=== PATIENT | female | born 1990 | race Two or more races ===

== ENCOUNTER 2024-08-30 09:07 | Outpatient (RCR) | payer MEDICAID, SELFPAY | END 2024-09-13 23:59 | disposition home or self-care (01) | LOC: SCTC 09:07 | PROVIDERS: PCP Internal Medicine Pulmonary Disease; Referring Provider Nurse Practitioner Family; Visit Provider Nurse Practitioner Family | DX: D50.9 Iron deficiency anemia, unspecified (principal); E53.8 Deficiency of other specified B group vitamins; Z87.19 Personal history of other diseases of the digestive system; Z86.73 Personal history of transient ischemic attack (TIA), and cerebral infarction without residual deficits | CPT/HCPCS: 99212; G0463 ==

== ENCOUNTER 2024-09-24 14:17 | Outpatient (RCR) | payer MEDICAID, SELFPAY | END 2024-10-14 23:59 | disposition home or self-care (01) | LOC: SCTC 14:17 | PROVIDERS: PCP Internal Medicine Pulmonary Disease; Referring Provider Internal Medicine Pulmonary Disease; Visit Provider Nurse Practitioner Family | DX: D50.9 Iron deficiency anemia, unspecified (principal); E53.8 Deficiency of other specified B group vitamins; Z86.73 Personal history of transient ischemic attack (TIA), and cerebral infarction without residual deficits | CPT/HCPCS: 99212; G0463 ==

== ENCOUNTER 2024-12-11 11:00 | Outpatient (RCR) | payer MEDICAID, SELFPAY ==
--- NOTE | 2024-11-28 11:16 | PT.OIERPT ---
PT OP Initial Eval Patient Information Outpatient Physical Therapy Treatment Date: 11/28/24 Visit Reasons: low back pain Medical Diagnosis: M54.50 Treatment Dx #1: LBP Start of Care: 11/28/24 Date of Onset: August 02, 2024 Smoking Status Smoking Status: Never smoker Initial Assessment Subjective: Pt is 34 yr old female who reports LBP since epidural and of her baby in July. Pain shoots down from close to the epidural site. Increased pain with turning in bed, bending, lifting 10lb baby. PMH: C-sections x5, TIA 2022 Imaging: none Pt goal: to get rid of that pain, how to manage it. Objective: ? Trunk ArOM: ? B SB 50% of normal with LBP ? Extension: 20% with pain around L1-5 ? Flexion: 10 from floor with relief ? B rotation: 60% with pain ? TTP: moderate paraspinals L1-L5 paraspinals ? Neuro: B SLR: negative Assessment: Pt presents with myofascial tenderness of the lower thoracic and lumbar paraspinals after epidural which may be consistent with hypersensitive nerves in that area. Pt requires skilled therapy and has fair rehab potential to meet goals. 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 Ind with HEP ? 2. Improved turning in bed tolerance to painfree ? 3. Decreased lower paraspinal TTP from mod to min 4. Pt will lift her baby without back pain x3 Treatment Plan ?1. Manual therapy ? 2. Therex ? 3. Modalities as indicated, moist heat, ice, estim, mechanical traction Frequency and Duration: 1-2x a week for 12 sessions plus the evaluation Certification Dates: 11/28/24 to 02/26/25 Procedure Charges OP PT Eval Mod Complex 30 minutes: Yes
--- NOTE | 2024-12-04 11:44 | PT.ODAYNRPT ---
PT Outpatient Daily Note OP Daily Note Outpatient Physical Therapy Treatment Date: 12/04/24 Visit Reasons: low back pain Subjective: Pt c/o pain in mid back today, as per pt she has good and bad days. Objective: Please see flow sheet for ther ex list. Assessment: Interventions completed with minimal pain. Plan: Assess response to treatment. Length of Time (minutes) of Treatment: 30 Minutes Procedure Charges Therapeutic Exercise 30 minutes: Yes
--- NOTE | 2024-12-11 13:56 | PT.ODAYNRPT ---
PT Outpatient Daily Note OP Daily Note Outpatient Physical Therapy Treatment Date: 12/11/24 Visit Reasons: low back pain Subjective: Pt reports back and L hip are hurting today. Objective: Please see flow sheet for ther ex list. Assessment: Pt has poor activity tolerance due to pain response. Plan: Assess response to treatment. Length of Time (minutes) of Treatment: 30 Minutes Procedure Charges Therapeutic Exercise 30 minutes: Yes
== END 2024-12-14 23:59 | disposition home or self-care (01) ==
LOC: CPTX 11:00
PROVIDERS: PCP Internal Medicine Pulmonary Disease; Referring Provider Internal Medicine Pulmonary Disease; Visit Provider Internal Medicine Pulmonary Disease
DX: M54.50 Low back pain, unspecified (principal)
CPT/HCPCS: 97110; 97162

== ENCOUNTER 2024-12-12 13:52 | Outpatient (RCR) | payer MEDICAID, SELFPAY | END 2024-12-14 23:59 | disposition home or self-care (01) | LOC: SCTC 13:52 | PROVIDERS: PCP Internal Medicine Pulmonary Disease; Referring Provider Internal Medicine Pulmonary Disease; Visit Provider Internal Medicine Hematology & Oncology | DX: D50.9 Iron deficiency anemia, unspecified (principal); E53.8 Deficiency of other specified B group vitamins; Z86.73 Personal history of transient ischemic attack (TIA), and cerebral infarction without residual deficits | CPT/HCPCS: 96365; 96375; J2919; J3490; J7040; Q0138 ==

== ENCOUNTER 2025-01-08 11:00 | Outpatient (RCR) | payer MEDICAID, SELFPAY ==
--- NOTE | 2024-12-18 12:05 | PT.ODAYNRPT ---
PT Outpatient Daily Note OP Daily Note Outpatient Physical Therapy Treatment Date: 12/18/24 Visit Reasons: LOW BACK PAIN Subjective: Continued LBP, maybe a little less since starting therapy Objective: See F/S for therex MT: STM L/S with flexbar x7' Assessment: Moderate TTP of lumbar paraspinals with MT Plan: Continue per POC Length of Time (minutes) of Treatment: 30 Minutes Procedure Charges Therapeutic Exercise 30 minutes: Yes
--- NOTE | 2024-12-20 11:55 | PT.ODAYNRPT ---
PT Outpatient Daily Note OP Daily Note Outpatient Physical Therapy Treatment Date: 12/20/24 Visit Reasons: LOW BACK PAIN Subjective: Pt reports LBP still present, no changes at this time. Objective: Please see flow sheet for ther ex list. Assessment: Progressing core strengthening interventions, completed with good tolerance. Plan: Continue with pOC. Length of Time (minutes) of Treatment: 30 Minutes Procedure Charges Therapeutic Exercise 30 minutes: Yes
--- NOTE | 2024-12-27 14:26 | PT.ODAYNRPT ---
PT Outpatient Daily Note OP Daily Note Outpatient Physical Therapy Treatment Date: 12/27/24 Visit Reasons: LOW BACK PAIN Subjective: Continued LBP, maybe a little less since starting therapy Objective: See F/S for therex Assessment: Moderate TTP of lumbar paraspinals with MT. Pain into flexion and extension consistent with possible lumbar disc bulge. Plan: Continue per POC Length of Time (minutes) of Treatment: 30 Minutes Procedure Charges Therapeutic Exercise 30 minutes: Yes
--- NOTE | 2025-01-01 11:45 | PT.ODAYNRPT ---
PT Outpatient Daily Note OP Daily Note Outpatient Physical Therapy Treatment Date: 01/01/25 Visit Reasons: LOW BACK PAIN Subjective: No changes to report on LBp. pt mentioned on Tuesday when it was rainy pt slipped and fell outsied a store, feels like her knee gave out. pt mentioned she landed on her L knee but twisted her R knee. Objective: Please see flow sheet for ther ex list. Assessment: Pt presents in clinic with antalgic gait, no worsening or changes in l/s symptoms. Plan: Continue with pOC. Length of Time (minutes) of Treatment: 30 Minutes Procedure Charges Therapeutic Exercise 30 minutes: Yes
--- NOTE | 2025-01-03 12:05 | PT.ODAYNRPT ---
PT Outpatient Daily Note OP Daily Note Outpatient Physical Therapy Treatment Date: 01/03/25 Visit Reasons: LOW BACK PAIN Subjective: Continued LBP, maybe a little less since starting therapy. She slipped and twisted the L knee which is sore today. Objective: MT: STM L/S with flexbar x7' See F/S for therex Assessment: Min/Moderate TTP of lumbar paraspinals with MT. Pain into flexion and extension consistent with possible lumbar disc bulge. Plan: Continue per POC Length of Time (minutes) of Treatment: 30 Minutes Procedure Charges Therapeutic Exercise 30 minutes: Yes
--- NOTE | 2025-01-08 13:39 | PTNOTE_ITS ---
PT Outpatient Daily Note OP Daily Note Outpatient Physical Therapy Treatment Date: 01/08/25 Visit Reasons: LOW BACK PAIN Subjective: Continued LBP, maybe a little less since starting therapy but she has a couple of days a week with intense LBP Objective: See F/S for therex Assessment: Pt has increased lumbar lordosis. Good demo of posterior pelvic tilting. Pain in to flexion and extension consistent with facet pain Plan: Continue per POC Length of Time (minutes) of Treatment: 30 Minutes Procedure Charges Therapeutic Exercise 30 minutes: Yes
== END 2025-01-13 23:59 | disposition home or self-care (01) ==
LOC: CPTX 11:00
PROVIDERS: PCP Internal Medicine Pulmonary Disease; Referring Provider Internal Medicine Pulmonary Disease; Visit Provider Internal Medicine Pulmonary Disease
DX: M54.50 Low back pain, unspecified (principal)
CPT/HCPCS: 97110

== ENCOUNTER 2025-02-05 09:00 | Outpatient (RCR) | payer MEDICAID, SELFPAY ==
--- NOTE | 2025-01-15 14:04 | PTNOTE_ITS ---
PT Outpatient Daily Note OP Daily Note Outpatient Physical Therapy Treatment Date: 01/15/25 Visit Reasons: low back pain Subjective: Continued LBP, maybe a little less since starting therapy but she has a couple of days a week with intense LBP Objective: See F/S for therex Assessment: Pt has increased lumbar lordosis. Good demo of posterior pelvic tilting. Pain in to flexion and extension consistent with facet pain and core weakness Plan: Continue per POC Length of Time (minutes) of Treatment: 30 Minutes Procedure Charges Therapeutic Exercise 30 minutes: Yes
--- NOTE | 2025-01-23 12:47 | PT.ODAYNRPT ---
PT Outpatient Daily Note OP Daily Note Outpatient Physical Therapy Treatment Date: 01/23/25 Visit Reasons: low back pain Subjective: Pt reports muscle soreness but no other complaints. Objective: Please see flow sheet for ther ex list. Assessment: Continue focus on restoring core strength and train to facilitate PPT. Plan: Continue with POC. Length of Time (minutes) of Treatment: 30 Minutes Procedure Charges Therapeutic Exercise 30 minutes: Yes
--- NOTE | 2025-01-29 10:31 | PT.ODAYNRPT ---
PT Outpatient Daily Note OP Daily Note Outpatient Physical Therapy Treatment Date: 01/29/25 Visit Reasons: low back pain Subjective: Pt reports LBP is ok today, no increase pain. Objective: Please see flow sheet for ther ex list. Assessment: Pt requires multiple attempts to perform PPT with good technique. Plan: Continue with POC. Length of Time (minutes) of Treatment: 30 Minutes Procedure Charges Therapeutic Exercise 30 minutes: Yes
--- NOTE | 2025-01-31 10:06 | PT.ODAYNRPT ---
PT Outpatient Daily Note OP Daily Note Outpatient Physical Therapy Treatment Date: 01/31/25 Visit Reasons: low back pain Subjective: A little less LBP since starting therapy and less frequent painful days Objective: See F/S for therex Assessment: Pt has increased lumbar lordosis. Good demo of posterior pelvic tilting. Pain into flexion and extension consistent with facet pain and core weakness Plan: Reassess Length of Time (minutes) of Treatment: 30 Minutes Procedure Charges Therapeutic Exercise 30 minutes: Yes
--- NOTE | 2025-02-05 10:08 | PT.ODS1RPT ---
PT OP Progress/Discharge Note Date of Service: 02/05/25 Progress Note/DC Note Progress Note/Discharge Note: DC Note Patient Information Visit Reasons: low back pain Service Continue Service or Discharge: Discharge Discharge Date: 02/05/25 Status Subjective: A little less LBP since starting therapy and less frequent painful days. She can lift her baby without pain if she thinks about her form. Objective: See F/S for therex TTP: min of lower paraspinals Trunk AROM: FB: 8 from floor Assessment: Pt has attended the eval and 01/25 Rx sessions with good progress to meet therapy goals. Pt can turn in bed and lift her baby without back pain if she thinks about technique to meet those goals. And she has met the goal of decreased TTP of paraspinals from mod to min. Pt has increased lumbar lordosis and has good demo of posterior pelvic tilting to help correct that. Pain into flexion and extension consistent with facet pain and core weakness. Plan: D/C with HEP Procedure Charges Therapeutic Exercise 30 minutes: Yes
== END 2025-02-13 23:59 | disposition home or self-care (01) ==
LOC: CPTX 09:00
PROVIDERS: PCP Internal Medicine Pulmonary Disease; Referring Provider Internal Medicine Pulmonary Disease; Visit Provider Internal Medicine Pulmonary Disease
DX: M54.50 Low back pain, unspecified (principal)
CPT/HCPCS: 97110